=== PATIENT | female | born 1940 | race Caucasian/White ===

== ENCOUNTER 2018-04-24 15:01 | Emergency (ER) | payer MEDICARE, BC ==
[2018-04-24 15:50] VITALS: BP 138/51
[2018-04-24] MEDS ORDERED: Albuterol 2.5 MG/3 ML NEB.SOL* (0.083%) INH ONE (16:01)
--- NOTE | 2018-04-24 16:07 | UC ---
Respiratory Complaint HPI - HPI Summary HPI Summary: Is 77-year-old woman comes in with a chief complaint of cough chest congestion and shortness breath. She's had upper respiratory tract infection symptoms for over 10 days. About 4 days ago she felt like it went into her chest. She has had some lightheadedness since then. She is hearing some wheezing. No history of asthma or COPD. No history of CHF. She has been having chills. Sputum is yellow. She does have rhinorrhea has postnasal drip minimal sore throat. Over- the-counter medicines help somewhat symptoms. She does feel some chest heaviness associated with the chest congestion and cough. No pedal edema. - History of Current Complaint Chief Complaint: UCRespiratory Stated Complaint: COUGH/CONGESTION Time Seen by Provider: 04/24/18 15:36 Pain Intensity: 0 - Allergies/Home Medications Allergies/Adverse Reactions: Allergies Allergy/AdvReac Type Severity Reaction Status Date / Time No Known Allergies Allergy Verified 04/24/18 15:24 Home Medications: Home Medications Amiodarone TAB* [Cordarone TAB*] 200 mg PO DAILY 04/24/18 [History Confirmed ] Apixaban* [Eliquis*] 5 mg PO BID 04/24/18 [History Confirmed 04/24/18] Atorvastatin* [Lipitor*] 10 mg PO DAILY 04/24/18 [History Confirmed 04/24/18] Levothyroxine TAB* [Synthroid TAB*] 125 mcg PO DAILY 04/24/18 [History Confirmed 04/24/18] Potassium Chlor TAB* [Klor Con ER TAB*] 10 meq PO BID 04/24/18 [History Confirmed 04/24/18] Ranitidine TAB (NF) [Zantac TAB (NF)] 300 mg PO BEDTIME 04/24/18 [History Confirmed 04/24/18] Torsemide TAB* [Demadex*] 2 tab PO DAILY 04/24/18 [History Confirmed 04/24/18] amLODIPine TAB* [Norvasc 5 mg TAB*] 5 mg PO DAILY 04/24/18 [History Confirmed ] guaiFENesin ER TAB [Mucinex*] 600 mg PO BID PRN 04/24/18 [History Confirmed ] PMH/Surg Hx/FS Hx/Imm Hx Previously Healthy: Yes Endocrine History: Hypothyroidism, Dyslipidemia Cardiovascular History: Hypertension, Atrial Fibrillation GI/ History: Gastroesophageal Reflux - Surgical History Surgical History: Yes Surgery Procedure, Year, and Place: COLOSTOMY AFTER COLECTOMY FOR DIVERTICULITIS. KNEE REPLACMETS , HIP REPLACEMENT , SHOULDER SURGERY' FOOT SURGERY. - Family History Known Family History: Positive: Non-Contributory - Social History Alcohol Use: None Substance Use Type: None Smoking Status (MU): Never Smoked Tobacco Review of Systems All Other Systems Reviewed And Are Negative: Yes Constitutional: Positive: Chills Skin: Positive: Negative Eyes: Positive: Negative ENT: Positive: Sore Throat, Nasal Discharge Respiratory: Positive: Shortness Of Breath, Cough, Other - WHEEZING Cardiovascular: Positive: Other - SEE HPI Gastrointestinal: Positive: Negative Genitourinary: Positive: Negative Motor: Positive: Negative Neurovascular: Positive: Negative Musculoskeletal: Positive: Negative Neurological: Positive: Negative Psychological: Positive: Negative Is Patient Immunocompromised?: No Physical Exam Triage Information Reviewed: Yes Appearance: No Pain Distress, Well-Nourished, Ill-Appearing - MILD Vital Signs: Initial Vital Signs Temp 100.2 F 04/24/18 15:40 Pulse 74 04/24/18 15:40 Resp 17 04/24/18 15:40 BP 138/51 04/24/18 15:40 Pulse Ox 96 04/24/18 15:40 Vital Signs Reviewed: Yes Eye Exam: Normal Eyes: Positive: Conjunctiva Clear ENT: Positive: Pharyngeal erythema, Nasal congestion, Nasal drainage, TMs normal Neck exam: Normal Neck: Positive: Supple Respiratory: Positive: No respiratory distress, No accessory muscle use, Rhonchi - AT BASES Cardiovascular: Positive: RRR Musculoskeletal Exam: Normal Musculoskeletal: Positive: Strength Intact, ROM Intact, No Edema Neurological Exam: Normal Neurological: Positive: Alert, Muscle Tone Normal Psychological Exam: Normal Psychological: Positive: Age Appropriate Behavior Skin Exam: Normal UC Diagnostic Evaluation - Laboratory O2 Sat by Pulse Oximetry: 96 - EKG Cardiac Rate: NL - AT 1533 Cardiac Rhythm: Sinus: Normal - 75BPM Ectopy: None ST Segment: Normal Respiratory Course/Dx - Course Course Of Treatment: Patient Name: FAYE DEVRIES Medical Record#: [id number]. Ordering Physician: Israel Salazar MD Acct.#: [id number]. : 1940 Age: 77 Sex: F Location: [facility]. Exam Date: 04/24/18 1601 ADM Status: REG ER. Order Information: CHEST PA LAT 2 VWS. Accession Number: [id number]. CPT: 73564. INDICATION: Productive cough. Fever. History of atrial fibrillation. COMPARISON: No relevant prior exams available on the [facility] [place] PACS for comparison. TECHNIQUE: Dual energy PA and routine lateral views of the chest were obtained. REPORT: Alveolar consolidation at the LEFT lung base is concerning for pneumonia given. absence of volume loss to favor atelectasis. Minimal linear atelectasis at the RIGHT. costophrenic angle. Diffuse mild prominence of the interstitial markings. Grossly clear. pleural spaces. Negative for pneumothorax. Cardiomegaly. Unremarkable central pulmonary. vasculature. Tortuous descending thoracic aorta. Prosthetic LEFT glenohumeral joint. IMPRESSION: #. Alveolar consolidation at the LEFT lung base is concerning for pneumonia given absence. of volume loss to favor atelectasis. . < Electronically signed by Yang Martínez MD in [facility]> 04/24/18 1626. I discussed the x-ray report with the patient. We'll treat the patient for pneumonia. Patient is on amiodarone therefore she cannot be on Levaquin or Azo azithromycin. Plan is to have her on doxycycline 100 mg by mouth twice a day and also given her an albuterol inhaler prescription to be used if helpful. We discussed that if she does not improve she gets worse she needs to go the emergency department. - Differential Dx/Diagnosis Provider Diagnosis: Pneumonia Discharge - Sign-Out/Discharge Documenting (check all that apply): Patient Departure All imaging exams completed and their final reports reviewed: Yes - Discharge Plan Condition: Stable Disposition: HOME Prescriptions: Albuterol HFA INHALER* [Ventolin HFA Inhaler*] 2 puff INH Q4H PRN #1 mdi PRN Reason: Wheezing DOXYcycline CAP(*) [DOXYcycline 100MG CAP(*)] 100 mg PO BID #20 cap Patient Education Materials: Pneumonia (ED) Referrals: Rusty Shultz MD [Primary Care Provider] - Additional Instructions: FOLLOW UP WITH YOUR DOCTOR. GO TO THE EMERGENCY DEPARTMENT FOR ANY WORSENING OF YOUR CONDITION; CHEST PAIN, SHORTNESS OF BREATH, YOU FEEL ILL OR QUESTIONS OR CONCERNS. - Billing Disposition and Condition Condition: STABLE Disposition: Home
[2018-04-24 16:13] LABS: Influenza A Molecular NEGATIVE (Negative); Influenza B Molecular NEGATIVE (Negative)
== END 2018-04-24 16:59 | disposition home or self-care (01) ==
LOC: UCCORT 15:01
DX: J18.9 Pneumonia, unspecified organism (principal); E03.9 Hypothyroidism, unspecified; E78.5 Hyperlipidemia, unspecified; I10 Essential (primary) hypertension; I48.91 Unspecified atrial fibrillation; K21.9 Gastro-esophageal reflux disease without esophagitis; Z79.899 Other long term (current) drug therapy; Z79.01 Long term (current) use of anticoagulants
CPT/HCPCS: 71046; 93005; 99202; G0463